=== PATIENT | female | born 1940 | race Caucasian/White ===

== ENCOUNTER 2017-10-18 06:20 | Inpatient (IN) | payer OTHER ==
[2017-10-17 16:07] LABS: BASOPHILS # (AUTO) 0.1 (0.0-0.1); BASOPHILS % 0.7 % (0.0-1.0); EOSINOPHILS # (AUTO) 0.1 (0.0-0.4); EOSINOPHILS % 1.7 % (0.0-6.0); HEMATOCRIT 40.2 % (34.2-44.1); HEMOGLOBIN 13.6 g/dL (12.0-16.0); LYMPHOCYTES # (AUTO) 2.5 (1.0-3.2); LYMPHOCYTES % 33.2 % (18.0-39.1); MEAN CORPUSCULAR HGB CONC 33.8 g/dL (31-35); MEAN CORPUSCULAR VOLUME 88.5 fL (81-99); MONOCYTES # (AUTO) 0.6 (0.2-0.8); MONOCYTES % 8.4 % (4.4-11.3); NEUTROPHILS # (AUTO) 4.2 (2.1-6.9); NEUTROPHILS % 55.6 % (38.7-80.0); PLATELET COUNT 214 x10e3/uL (140-360); RED BLOOD COUNT 4.54 x10e6/uL (3.6-5.1); RED CELL DISTRIBUTION WIDTH 12.7 % (11.7-14.4)
[2017-10-17 16:14] LABS: INR 1.04; PROTHROMBIN TIME 12.8 seconds (11.9-14.5)
[2017-10-17 16:23] LABS: ALBUMIN/GLOBULIN RATIO 1.1 (0.8-2.0); ANION GAP 13.5 mmol/L (8-16); CALCIUM 11.4 mg/dL (8.4-10.2); CREATININE, SERUM 1.2 mg/dL (0.57-1.11); POTASSIUM 4.5 mmol/L (3.5-5.1)
--- NOTE | 2017-10-17 16:58 | Diagnostic Imaging Report ---
PROCEDURE: Frontal and lateral views of the chest. COMPARISON: None. INDICATIONS: PRE-OP FOR HEART CATHETERIZATION. CHEST PAIN FINDINGS: Lines/tubes: Left chest wall dual-lead cardiac device in place with distal leads overlying right atrium and right ventricle. Lungs: The lungs are well inflated. There is no evidence of pneumonia or pulmonary edema. Minimal left basilar subsegmental atelectasis. Pleura: There is no pleural effusion or pneumothorax. Heart and mediastinum: The heart and the mediastinum are normal. Aorta is calcified. Bones: No acute bony abnormality. IMPRESSION: 1. No acute cardiopulmonary disease. Dictated by: Óscar Redding M.D. on 10/17/2017 at 17:01 Electronically approved by: Óscar Redding M.D. on 10/17/2017 at 17:01
[2017-10-18] VITALS (29 sets, daily range): BP systolic 105–163; BP diastolic 51–84
[~2017-10-18] VITALS: Ht 152.4 cm; Wt 72.6 kg
[2017-10-18] MEDS ORDERED: PRAVASTATIN SOD80 MG PO (06:47)
[2017-10-18] MEDS ORDERED: PANTOPRAZOLE SO40 MG PO (06:47)
[2017-10-18] MEDS ORDERED: NITROGLYCERIN0.4 MG SL (06:47)
[2017-10-18] MEDS ORDERED: ASPIRIN81 MG PO (06:47)
[2017-10-18] MEDS ORDERED: LOSARTAN POTASS25 MG PO (06:47)
[2017-10-18] MEDS ORDERED: LEVEMIR100 UNIT/1 SQ ×2 (06:47)
[2017-10-18] MEDS ORDERED: MECLIZINE HCL12.5 MG PO (06:47)
[2017-10-18] MEDS ORDERED: FAMOTIDINE20 MG PO (06:47)
[2017-10-18] MEDS ORDERED: SODIUM CHLORIDE 0.9% 1000ML 0 ML ONE (06:52)
[2017-10-18] MEDS ORDERED: FENTANYL CITRATE/PF 100MCG/2 ML INJ ONE (07:04)
[2017-10-18] MEDS ORDERED: MIDAZOLAM HCL 2 MG/2 ML VIAL ONE (07:04)
[2017-10-18] MEDS ORDERED: SODIUM CHLORIDE 0.9% 1000ML 1,000 ML ONE ×3 (07:05→15:14)
[2017-10-18] MEDS ORDERED: LIDOCAINE HCL 2% LOCAL 20 ML VIAL ONE (07:05)
[2017-10-18] MEDS ORDERED: IOPAMIDOL 370 MG/ML 200 ML INFUS..BTL INJ ONE ×3 (07:05→08:26)
[2017-10-18] MEDS ORDERED: HEPARIN SOD/SOD CHLORIDE 2,000 ML ONE (07:05)
[2017-10-18] MEDS ORDERED: SODIUM CHLORIDE 0.9% 50ML 50 ML ONE (07:52)
[2017-10-18] MEDS ORDERED: LABETALOL HCL 20 ML ONE (07:52)
[2017-10-18] MEDS ORDERED: BIVALIRUDIN 250 MG/VIAL IV ONE (07:52)
[2017-10-18] MEDS ORDERED: ATROPINE SULFATE 0.1 MG/ML 10ML SYR ONE (08:22)
[2017-10-18] MEDS ORDERED: ASPIRIN 325 MG TAB ONE (08:32)
[2017-10-18] MEDS ORDERED: CLOPIDOGREL BISULFATE 75 MG TAB ONE ×2 (08:32)
[2017-10-18] MEDS ORDERED: ONDANSETRON HCL INJ 2 MG/ML VIAL ONE ×2 (08:33→15:13)
[2017-10-18] MEDS ORDERED: ONDANSETRON HCL INJ 2 MG/ML VIAL IV PRN (15:15)
[2017-10-18] MEDS ORDERED: PROMETHAZINE 12.5MG/ NACL 0.9% 12.5 MG/50 ML BAG IV PRN (18:15)
[2017-10-18] MEDS ORDERED: DEXTROSE 50% SYRINGE 50 ML IV PRN ×2 (19:30→21:00)
[2017-10-18] MEDS: INSULIN REGULAR, HUMAN 100 UNIT/1 ML 3ML VIAL SQ SCH (21:00)
[2017-10-19] VITALS (20 sets, daily range): BP systolic 122–159; BP diastolic 46–72
[2017-10-19 06:08] LABS: BASOPHILS % 0.6 % (0.0-1.0); EOSINOPHILS # (AUTO) 0.1 (0.0-0.4); EOSINOPHILS % 2.1 % (0.0-6.0); HEMATOCRIT 34.6 % (34.2-44.1); LYMPHOCYTES # (AUTO) 2.3 (1.0-3.2); LYMPHOCYTES % 34.1 % (18.0-39.1); MEAN CORPUSCULAR HEMOGLOBIN 29.7 pg (28-32); MEAN CORPUSCULAR HGB CONC 31.8 g/dL (31-35); MEAN CORPUSCULAR VOLUME 93.5 fL (81-99); MONOCYTES # (AUTO) 0.6 (0.2-0.8); MONOCYTES % 9.2 % (4.4-11.3); NEUTROPHILS # (AUTO) 3.5 (2.1-6.9); NEUTROPHILS % 53.4 % (38.7-80.0); PLATELET COUNT 168 x10e3/uL (140-360); RED CELL DISTRIBUTION WIDTH 12.8 % (11.7-14.4)
[2017-10-19 06:28] LABS: ANION GAP 11.9 mmol/L (8-16); CALCIUM 10.1 mg/dL (8.4-10.2); CREATININE, SERUM 0.94 mg/dL (0.57-1.11); POTASSIUM 4.9 mmol/L (3.5-5.1)
[2017-10-19] MEDS: INSULIN REGULAR, HUMAN 100 UNIT/1 ML 3ML VIAL SQ SCH (07:30)
[2017-10-19] MEDS ORDERED: ASPIRIN 325 MG TAB PO ONE (10:00)
[2017-10-19] MEDS ORDERED: METOPROLOL TARTRATE 25 MG TAB PO ONE (10:00)
[2017-10-19] MEDS ORDERED: CLOPIDOGREL BISULFATE 75 MG TAB PO ONE (10:00)
[2017-10-19] MEDS ORDERED: SODIUM CHLORIDE 0.9% 1000ML 1,000 ML IV SCH (10:15)
[2017-10-19] MEDS ORDERED: CLOPIDOGREL BISULFATE 75 MG TAB PO SCH (10:30)
[2017-10-19] MEDS ORDERED: ASPIRIN 325 MG TAB PO SCH (10:30)
[2017-10-19] MEDS ORDERED: AMLODIPINE BESYLATE 5 MG TAB PO SCH (10:30)
--- NOTE | 2017-10-19 11:04 | Operative Report ---
DATE OF PROCEDURE: October 18, 2017 PROCEDURES PERFORMED 1. Left heart catheterization. 2. Selective coronary angiogram. 3. Left ventriculogram. 4. Stent placement in the right coronary artery. INDICATIONS: Angina. DESCRIPTION OF PROCEDURE: After informed consent, the patient was brought to the cardiac catheterization laboratory and placed on the table. Both groins were painted and draped in a sterile fashion. Lidocaine injected into the right groin for local anesthesia. Right femoral artery was accessed by Seldinger technique, and a 5-Ugandan sheath was placed in the right femoral artery. Left main artery was cannulated using a JL4, 5-Ugandan catheter. Coronary angiogram was performed and images obtained in multiple views. The right coronary artery was cannulated using a 3DRC, 5-Ugandan catheter. Coronary angiogram was performed. Images were obtained in multiple views. LV-gram was performed using a pigtail catheter. After reviewing the images, it was decided to intervene on the 99% distal right coronary artery lesion. The 5-Ugandan sheath was exchanged for a 6-Ugandan sheath over a guidewire. Attempts were made to cannulate the right coronary artery using an EL 0.75 guide. However, it would not access the ostium. A JR4, 6-Ugandan guide was used to cannulate the right coronary artery. A Prowater wire was advanced through the sheath and placed in the distal right coronary artery. The lesion was dilated at 8 atmospheres for about 20 seconds using a 2.5 x 12 mm Emerge balloon. Subsequently, a 2.75 x 16 mm Synergy drug-eluting stent was deployed across the lesion at 11 atmospheres for 20 seconds. Patient was given aspirin, Plavix and Angiomax during the procedure. Patient tolerated the procedure without any complications. REPORT LEFT MAIN: Normal caliber and no luminal irregularities. LEFT ANTERIOR DESCENDING: Normal caliber with luminal irregularities. The 1st diagonal branch has about 30% proximal lesion. LEFT CIRCUMFLEX: Normal caliber and luminal irregularities. RIGHT CORONARY ARTERY: Normal caliber and 99% distal lesion. LV-GRAM: Normal LV function. Overall ejection fraction 55%. HEMODYNAMICS: Aortic pressure is 205/77. LV pressure is 204/9. LVEDP 17. Balloon used was a 2.5 x 12 mm Emerge. Stent used was 2.75 x 16 mm Synergy drug-eluting stent, which was deployed across the lesion in the distal right coronary artery. There was zero percent residual stenosis. ISABELLA-III flow noted. Job#: [id number] RICHARD
[2017-10-19] MEDS ORDERED: METOPROLOL TARTRATE 25 MG TAB PO SCH (17:00)
[2017-10-19] MEDS ORDERED: PRAVASTATIN 20 MG TAB PO SCH (21:00)
[2017-10-20] MEDS ORDERED: CLOPIDOGREL BISULFATE 75 MG TAB PO SCH (09:00)
== END 2017-10-19 12:48 | disposition home or self-care (01) | DRG 247 ==
LOC: CATH LAB 06:20 → CATH LAB V 08:48 → ICU 15:07
PROVIDERS: ADMIT Internal Medicine; ATTEND Internal Medicine
PROC: 027034Z Dilation of Coronary Artery, One Artery with Drug-eluting Intraluminal Device, Percutaneous Approach (ICD-10-PCS; principal; 2017-10-19)
PROC: 4A023N7 Measurement of Cardiac Sampling and Pressure, Left Heart, Percutaneous Approach (ICD-10-PCS; 2017-10-19)
PROC: B2111ZZ Fluoroscopy of Multiple Coronary Arteries using Low Osmolar Contrast (ICD-10-PCS; 2017-10-19)
PROC: B2151ZZ Fluoroscopy of Left Heart using Low Osmolar Contrast (ICD-10-PCS; 2017-10-19)
DX: I25.119 Atherosclerotic heart disease of native coronary artery with unspecified angina pectoris (principal); R00.2 Palpitations; I10 Essential (primary) hypertension; Z95.0 Presence of cardiac pacemaker; R01.1 Cardiac murmur, unspecified; I49.5 Sick sinus syndrome; Z95.5 Presence of coronary angioplasty implant and graft; R07.2 Precordial pain
CPT/HCPCS: 36415; 71046; 80048; 80053; 82948; 85025; 85610; 93005; 93458; 96372; C9600; J0583; J2001; J2250; J2405; J2550; J7030; Q9967

== ENCOUNTER → 2019-03-14 | Day surgery (SDC) | payer OTHER ==
[2019-03-06 10:58] LABS: BASOPHILS % 0.7 % (0.0-1.0); EOSINOPHILS # (AUTO) 0.1 (0.0-0.4); EOSINOPHILS % 2.6 % (0.0-6.0); HEMATOCRIT 23.6 % (34.2-44.1); LYMPHOCYTES # (AUTO) 1.3 (1.0-3.2); LYMPHOCYTES % 31.2 % (18.0-39.1); MEAN CORPUSCULAR HEMOGLOBIN 22.4 pg (28-32); MEAN CORPUSCULAR HGB CONC 28.8 g/dL (31-35); MEAN CORPUSCULAR VOLUME 77.9 fL (81-99); MONOCYTES # (AUTO) 0.5 (0.2-0.8); MONOCYTES % 10.5 % (4.4-11.3); NEUTROPHILS # (AUTO) 2.3 (2.1-6.9); NEUTROPHILS % 54.3 % (38.7-80.0); PLATELET COUNT 215 x10e3/uL (140-360); RED BLOOD COUNT 3.03 x10e6/uL (3.6-5.1); RED CELL DISTRIBUTION WIDTH 15.3 % (11.7-14.4)
[2019-03-06 11:30] LABS: HEMOGLOBIN 6.8 g/dL (12.0-16.0)
[~2019-03-14] MED LIST: ASPIRIN81 MG PO; FAMOTIDINE20 MG PO; GABAPENTIN100 MG PO; INSULIN REGULAR, HUMAN 100 UNIT/1 ML 3ML VIAL ONE; LEVEMIR100 UNIT/1 SQ; LIDOCAINE HCL 2% LOCAL INJ 5 ML SDV VIAL INJ ONE; LOSARTAN POTASS25 MG PO; MECLIZINE HCL12.5 MG PO; METOPROLOL TART25 MG PO; NITROGLYCERIN0.4 MG SL; NOVOLOG100 UNIT/1 SQ; ONDANSETRON HCL INJ 2MG/ML 2ML 2 MG/ML VIAL ONE; PANTOPRAZOLE SO40 MG PO; PLAVIX75 MG PO; PRAVASTATIN SOD80 MG PO; PROPOFOL IV EMULSION 10 MG/ML 20 ML VIAL ONE
[2019-03-14 09:12] LABS: HEMATOCRIT 38.1 % (34.2-44.1); HEMOGLOBIN 11.4 g/dL (12.0-16.0)
[2019-03-14 11:15] VITALS: BP 156/67
== END | disposition home or self-care (01) ==
LOC: OR 08:25
PROVIDERS: ATTEND Internal Medicine Gastroenterology
DX: R10.13 Epigastric pain (principal); K25.3 Acute gastric ulcer without hemorrhage or perforation; K29.50 Unspecified chronic gastritis without bleeding; R13.19 Other dysphagia; R07.89 Other chest pain; K59.00 Constipation, unspecified; K44.9 Diaphragmatic hernia without obstruction or gangrene; I10 Essential (primary) hypertension; E11.9 Type 2 diabetes mellitus without complications; Z71.3 Dietary counseling and surveillance; E66.9 Obesity, unspecified; Z68.32 Body mass index [BMI] 32.0-32.9, adult; Z88.5 Allergy status to narcotic agent; Z88.8 Allergy status to other drugs, medicaments and biological substances; Z91.040 Latex allergy status; G47.33 Obstructive sleep apnea (adult) (pediatric); J44.9 Chronic obstructive pulmonary disease, unspecified; Z95.0 Presence of cardiac pacemaker; I25.10 Atherosclerotic heart disease of native coronary artery without angina pectoris; Z95.5 Presence of coronary angioplasty implant and graft; I73.9 Peripheral vascular disease, unspecified; Z79.82 Long term (current) use of aspirin; Z79.4 Long term (current) use of insulin; K22.8 Other specified diseases of esophagus
CPT/HCPCS: 36415 ×2; 43239; 43450; 82948; 85014; 85018; 85025; 93005; J2001; J2405; J2704; J1817

== ENCOUNTER 2021-03-09 15:10 | Inpatient (IN) | payer OTHER ==
[~2021-03-09] VITALS: Ht 152.4 cm; Wt 73.5 kg
[~2021-03-09 15:10] MED LIST changes: -INSULIN REGULAR, HUMAN 100 UNIT/1 ML 3ML VIAL ONE; -LIDOCAINE HCL 2% LOCAL INJ 5 ML SDV VIAL INJ ONE; -ONDANSETRON HCL INJ 2MG/ML 2ML 2 MG/ML VIAL ONE; -PROPOFOL IV EMULSION 10 MG/ML 20 ML VIAL ONE
[2021-03-09 16:14] LABS: BASOPHILS % 0.7 % (0.0-1.0); EOSINOPHILS # (AUTO) 0.1 (0.0-0.4); HEMOGLOBIN 12.2 g/dL (12.0-16.0); LYMPHOCYTES # (AUTO) 1.4 (1.0-3.2); MEAN CORPUSCULAR HEMOGLOBIN 29.2 pg (28-32); MEAN CORPUSCULAR HGB CONC 32.1 g/dL (31-35); MEAN CORPUSCULAR VOLUME 90.9 fL (81-99); MONOCYTES # (AUTO) 0.4 (0.2-0.8); MONOCYTES % 8.7 % (4.4-11.3); NEUTROPHILS # (AUTO) 2.4 (2.1-6.9); NEUTROPHILS % 55.1 % (38.7-80.0); PLATELET COUNT 190 x10e3/uL (140-360); RED BLOOD COUNT 4.18 x10e6/uL (3.6-5.1); RED CELL DISTRIBUTION WIDTH 13.5 % (11.7-14.4)
[2021-03-09] MEDS ORDERED: ASPIRIN 81 MG CHEW TAB PO ONE ×2 (16:30)
[2021-03-09 16:40] LABS: ALBUMIN/GLOBULIN RATIO 1.1 (0.8-2.0); ANION GAP 12.9 mmol/L (8-16); CALCIUM 9.8 mg/dL (8.4-10.2); CREATININE, SERUM 0.9 mg/dL (0.57-1.11); POTASSIUM 3.9 mmol/L (3.5-5.1)
[2021-03-09 17:51] VITALS: BP 179/65
[2021-03-09] MEDS: ENOXAPARIN INJ 80 MG/0.8 ML SYR SC SCH (18:27)
[2021-03-09] MEDS: SODIUM CHLORIDE 0.9% 1000ML 1,000 ML IV SCH (18:27)
[2021-03-09 20:00] VITALS: BP 130/50
[2021-03-09 20:40] VITALS: BP 130/50
[2021-03-09 23:39] VITALS: BP 130/50
[2021-03-10] VITALS (14 sets, daily range): BP systolic 133–157; BP diastolic 49–113
[2021-03-10 02:15] LABS: CREATINE KINASE MB 12.1 ng/mL (0-5.0)
[2021-03-10 06:17] LABS: BASOPHILS % 0.9 % (0.0-1.0); EOSINOPHILS # (AUTO) 0.1 (0.0-0.4); EOSINOPHILS % 2.4 % (0.0-6.0); HEMOGLOBIN 11.2 g/dL (12.0-16.0); LYMPHOCYTES # (AUTO) 1.3 (1.0-3.2); LYMPHOCYTES % 29.3 % (18.0-39.1); MEAN CORPUSCULAR HEMOGLOBIN 28.7 pg (28-32); MEAN CORPUSCULAR VOLUME 89.7 fL (81-99); MONOCYTES # (AUTO) 0.4 (0.2-0.8); NEUTROPHILS # (AUTO) 2.6 (2.1-6.9); PLATELET COUNT 156 x10e3/uL (140-360); RED CELL DISTRIBUTION WIDTH 13.4 % (11.7-14.4)
[2021-03-10 06:30] LABS: ANION GAP 10.6 mmol/L (8-16); CREATININE, SERUM 0.8 mg/dL (0.57-1.11); POTASSIUM 4.6 mmol/L (3.5-5.1)
[2021-03-10] MEDS: ENOXAPARIN INJ 80 MG/0.8 ML SYR SC SCH ×3 (06:30→21:27)
[2021-03-10 06:31] LABS: CALCIUM 9.7 mg/dL (8.4-10.2)
[2021-03-10 06:41] LABS: CREATINE KINASE MB 3.8 ng/mL (0-5.0)
[2021-03-10] MEDS: SODIUM CHLORIDE 0.9% 1000ML 1,000 ML IV SCH ×2 (07:00→15:59)
[2021-03-10] MEDS ORDERED: CLOPIDOGREL BISULFATE 300 MG TAB-DO NOT STOCK PO ONE (07:30)
[2021-03-10] MEDS ORDERED: HEPARIN SOD (PORCINE) 1000 UNIT/ML 30ML ONE (07:55)
[2021-03-10] MEDS ORDERED: LIDOCAINE HCL 2% LOCAL 20 ML VIAL ONE (07:55)
[2021-03-10] MEDS ORDERED: HEPARIN SOD/SOD CHLORIDE 2,000 ML ONE (07:55)
[2021-03-10] MEDS ORDERED: SODIUM CHLORIDE 0.9% 1000ML 1,000 ML ONE (07:56)
[2021-03-10] MEDS ORDERED: IOPAMIDOL 370 MG/ML 200 ML INFUS..BTL INJ ONE (07:56)
[2021-03-10] MEDS ORDERED: NITROGLYCERIN/D5W 200 MCG/ML 250 ML ONE (07:56)
[2021-03-10] MEDS ORDERED: CLOPIDOGREL BISULFATE 75 MG TAB PO ONE (08:00)
[2021-03-10] MEDS ORDERED: ASPIRIN 325 MG TAB PO ONE (08:00)
[2021-03-10] MEDS: ONDANSETRON HCL INJ 2MG/ML 2ML 2 MG/ML VIAL IV PRN ×2 (08:12→18:32)
[2021-03-10] MEDS ORDERED: MIDAZOLAM HCL 2 MG/2 ML VIAL ONE (08:22)
[2021-03-10] MEDS ORDERED: FENTANYL CITRATE/PF 100MCG/2 ML INJ ONE (08:22)
[2021-03-10] MEDS ORDERED: ASPIRIN 325 MG TAB ONE (09:23)
[2021-03-10] MEDS ORDERED: VERAPAMIL HCL 2.5 MG/ML 2 ML VIAL ONE (09:28)
[2021-03-10] MEDS ORDERED: FUROSEMIDE40 MG PO (09:46)
[2021-03-10] MEDS ORDERED: ULTRAM50 MG PO (09:46)
[2021-03-10] MEDS ORDERED: XARELTO10 MG PO (09:46)
[2021-03-10] MEDS ORDERED: DONEPEZIL HCL5 MG PO (09:46)
[2021-03-10] MEDS ORDERED: PLAVIX75 MG PO (09:46)
[2021-03-10] MEDS ORDERED: QUETIAPINE FUMA25 MG PO (09:46)
[2021-03-10] MEDS ORDERED: TICAGRELOR 90 MG TABLET ONE ×2 (10:02→10:53)
[2021-03-10] MEDS ORDERED: ONDANSETRON HCL INJ 2MG/ML 2ML 2 MG/ML VIAL ONE (10:32)
[2021-03-10 16:54] LABS: CREATINE KINASE MB 4.1 ng/mL (0-5.0)
[2021-03-10] MEDS: TICAGRELOR 90 MG TABLET PO SCH (18:16)
[2021-03-10] MEDS ORDERED: TICAGRELOR 90 MG TABLET PO NR (19:30)
[2021-03-10] MEDS ORDERED: PROMETHAZINE 25MG/ NS 50ML (IV) IV NR (19:30)
[2021-03-10] MEDS ORDERED: PROMETHAZINE 25MG/ NS 50ML (IV) IV ONE (19:30)
[2021-03-10] MEDS ORDERED: ATORVASTATIN 40 MG TAB PO SCH (21:00)
[2021-03-11] VITALS: BP 152/59
[2021-03-11] MEDS: SODIUM CHLORIDE 0.9% 1000ML 1,000 ML IV SCH (01:32)
[2021-03-11 04:00] VITALS: BP 110/61
[2021-03-11 08:03] VITALS: BP 111/80
[2021-03-11 08:10] VITALS: BP 111/80
[2021-03-11] MEDS ORDERED: ONDANSETRON HCL 4 MG ORAL DISINTEGRATING TAB PO PRN (08:45)
[2021-03-11] MEDS ORDERED: ASPIRIN 81 MG CHEW TAB PO SCH (09:00)
[2021-03-11] MEDS ORDERED: ASPIRIN 81 MG ENTERIC COATED PO SCH (09:00)
[2021-03-11] MEDS ORDERED: CARVEDILOL 12.5 MG TAB PO SCH (09:00)
[2021-03-11] MEDS ORDERED: CLOPIDOGREL BISULFATE 75 MG TAB PO SCH (09:00)
[2021-03-11] MEDS ORDERED: ASPIRIN 325 MG TAB PO SCH (09:00)
[2021-03-11] MEDS: TICAGRELOR 90 MG TABLET PO SCH (09:01)
[2021-03-11] MEDS: ENOXAPARIN INJ 80 MG/0.8 ML SYR SC SCH (09:02)
[2021-03-11 09:08] LABS: CHOL/HDL RATIO 6.1 (3.0-3.6)
== END 2021-03-11 10:34 | disposition home or self-care (01) | DRG 246 ==
LOC: ER 15:14 → ERHOLD 16:38 → MED/SURG3 17:43
PROVIDERS: ADMIT Internal Medicine; ATTEND Internal Medicine
PROC: 027035Z Dilation of Coronary Artery, One Artery with Two Drug-eluting Intraluminal Devices, Percutaneous Approach (ICD-10-PCS; principal; 2021-03-10)
PROC: 4A023N7 Measurement of Cardiac Sampling and Pressure, Left Heart, Percutaneous Approach (ICD-10-PCS; 2021-03-10)
PROC: B2151ZZ Fluoroscopy of Left Heart using Low Osmolar Contrast (ICD-10-PCS; 2021-03-10)
PROC: B2111ZZ Fluoroscopy of Multiple Coronary Arteries using Low Osmolar Contrast (ICD-10-PCS; 2021-03-10)
DX: I21.4 Non-ST elevation (NSTEMI) myocardial infarction (principal); I50.33 Acute on chronic diastolic (congestive) heart failure; I25.110 Atherosclerotic heart disease of native coronary artery with unstable angina pectoris; J44.9 Chronic obstructive pulmonary disease, unspecified; E11.9 Type 2 diabetes mellitus without complications; Z88.1 Allergy status to other antibiotic agents; Z88.5 Allergy status to narcotic agent; Z88.8 Allergy status to other drugs, medicaments and biological substances; E78.5 Hyperlipidemia, unspecified; G47.33 Obstructive sleep apnea (adult) (pediatric); I25.10 Atherosclerotic heart disease of native coronary artery without angina pectoris; Z95.5 Presence of coronary angioplasty implant and graft; Z95.0 Presence of cardiac pacemaker; I11.0 Hypertensive heart disease with heart failure; Z79.4 Long term (current) use of insulin; Z20.822 Contact with and (suspected) exposure to COVID-19
CPT/HCPCS: 36415; 71045; 80048; 80053; 80061; 82550; 82553; 82948; 83690; 84484; 85025; 92928; 92929; 93005; 93306; 93458; 94799; 99152; 99153; 99284; C1725; C1760; C1769; C1874; C1887; C1894; C9600; C9601; J1644; J1650; J2001; J2250; J2405; J2550; J3010; J7030; Q9967; U0002

== ENCOUNTER → 2021-11-19 | Outpatient (CLI) | payer OTHER ==
[~2021-11-19] MED LIST changes: +DONEPEZIL HCL5 MG PO; +FUROSEMIDE40 MG PO; +IOPAMIDOL 200 MG/ML 20 ML VIAL IT ONE; +IOPAMIDOL 300 MG/ML 15ML VIAL IT ONE; +LIDOCAINE HCL 1% LOCAL INJ 20 ML VIAL ONE; +QUETIAPINE FUMA25 MG PO; +ULTRAM50 MG PO; +XARELTO10 MG PO
[2021-11-19 14:18] LABS: HEMOGLOBIN 11.9 g/dL (12.0-16.0)
[2021-11-19 14:25] LABS: INR 0.95; PROTHROMBIN TIME 13.5 seconds (11.9-14.5)
[2021-11-19 14:26] LABS: PARTIAL THROMBOPLASTIN TIME 32.7 seconds (23.8-35.5)
== END ==
LOC: DX 13:01
PROVIDERS: ATTEND Family Medicine
DX: M48.061 Spinal stenosis, lumbar region without neurogenic claudication (principal); M54.51 Vertebrogenic low back pain
CPT/HCPCS: 36415; 62304; 72132; 77003; 85014; 85049; 85610; 85730; J2001; Q9967

== ENCOUNTER 2023-02-03 14:04 | Inpatient (IN) | payer OTHER ==
[~2023-02-03] VITALS: Ht 152.4 cm; Wt 71.7 kg
[~2023-02-03 14:04] MED LIST changes: -IOPAMIDOL 200 MG/ML 20 ML VIAL IT ONE; -IOPAMIDOL 300 MG/ML 15ML VIAL IT ONE; -LIDOCAINE HCL 1% LOCAL INJ 20 ML VIAL ONE
[2023-02-03] MEDS ORDERED: ASPIRIN 81 MG CHEW TAB PO ONE ×2 (14:45→16:00)
[2023-02-03] MEDS ORDERED: ENOXAPARIN INJ 80 MG/0.8 ML SYR SC ONE (14:45)
[2023-02-03 14:52] LABS: BASOPHILS % 0.9 % (0.0-1.0); EOSINOPHILS # (AUTO) 0.1 (0.0-0.4); EOSINOPHILS % 2.2 % (0.0-6.0); HEMATOCRIT 29.1 % (34.2-44.1); LYMPHOCYTES % 21.6 % (18.0-39.1); MEAN CORPUSCULAR HGB CONC 30.9 g/dL (31-35); MEAN CORPUSCULAR VOLUME 80.8 fL (81-99); MONOCYTES # (AUTO) 0.5 (0.2-0.8); MONOCYTES % 10.3 % (4.4-11.3); NEUTROPHILS # (AUTO) 2.8 (2.1-6.9); NEUTROPHILS % 63.9 % (38.7-80.0); PLATELET COUNT 217 x10e3/uL (140-360); RED CELL DISTRIBUTION WIDTH 14.9 % (11.7-14.4); WHITE BLOOD COUNT 4.45 x10e3/uL (4.8-10.8)
[2023-02-03 15:10] LABS: ANION GAP 14.1 mmol/L (8-16); CALCIUM 10.4 mg/dL (8.4-10.2); CREATININE, SERUM 0.85 mg/dL (0.57-1.11); POTASSIUM 4.1 mmol/L (3.5-5.1)
[2023-02-03] MEDS ORDERED: SODIUM CHLORIDE FLUSH 10 ML SYR INJ PRN (16:00)
[2023-02-03 17:47] LABS: CLARITY,URINE SL CLOUDY (CLEAR); COLOR,URINE YELLOW (YELLOW); KETONES,URINE NEGATIVE (NEGATIVE); LEUKOCYTE ESTERASE ,URINE NEGATIVE (NEGATIVE); NITRITE,URINE NEGATIVE (NEGATIVE); PROTEIN,URINE DIPSTICK >=300 (NEGATIVE); URINE UROBILINOGEN 0.2 mg/dL (0.2 - 1)
[2023-02-03 18:00] LABS: BACTERIA,URINE FEW /HPF; EPITHELIAL CELLS,URINE FEW /LPF; WBC,URINE (MAN) 0-5 /HPF (0-5)
[2023-02-03 20:15] VITALS: PULSE 87; RESP 18; O2SAT 100
[2023-02-03 21:00] VITALS: BP 151/83; PULSE 87; RESP 18; TEMP 97.7; O2SAT 100
[2023-02-03] MEDS ORDERED: ACETAMINOPHEN 325 MG TAB PO PRN (21:00)
[2023-02-03] MEDS ORDERED: ONDANSETRON HCL INJ 2MG/ML 2ML 2 MG/ML VIAL IV PRN (21:00)
[2023-02-03] MEDS ORDERED: FUROSEMIDE INJ 10 MG/ML 4 ML VIAL IV SCH (21:00)
[2023-02-03] MEDS ORDERED: MECLIZINE HCL 12.5 MG TAB PO PRN (21:00)
[2023-02-03 21:43] VITALS: BP 162/55; PULSE 76; RESP 18; TEMP 98.3; O2SAT 100
[2023-02-03 21:57] VITALS: BP 191/58; PULSE 76; RESP 20; TEMP 97.9; O2SAT 99
[2023-02-03] MEDS: HYDRALAZINE HCL 20 MG/ML VIAL IV PRN (22:10)
[2023-02-03] MEDS: CLOPIDOGREL BISULFATE 75 MG TAB PO SCH (22:10)
[2023-02-03] MEDS: DONEPEZIL HCL 5 MG TAB PO SCH (22:11)
[2023-02-03] MEDS: TRAMADOL HCL 50 MG TAB PO SCH (22:11)
[2023-02-03] MEDS: QUETIAPINE FUMARATE 25 MG TAB PO SCH (22:11)
[2023-02-03] MEDS ORDERED: IOPAMIDOL 370 MG/ML 100 ML INFUS..BTL INJ ONE (22:50)
[2023-02-03 23:00] VITALS: BP 123/55; PULSE 94; RESP 18; TEMP 97.8; O2SAT 97
[2023-02-03 23:48] VITALS: BP 191/58; PULSE 76; RESP 20; TEMP 97.9; O2SAT 99
[2023-02-04] VITALS (7 sets, daily range): BP systolic 90–154; BP diastolic 40–70; PULSE 71–89; RESP 17–20; TEMP 97.3–98.9; O2SAT 94–98
[2023-02-04 05:54] LABS: BASOPHILS % 0.7 % (0.0-1.0); EOSINOPHILS # (AUTO) 0.1 (0.0-0.4); EOSINOPHILS % 1.9 % (0.0-6.0); HEMATOCRIT 26.7 % (34.2-44.1); HEMOGLOBIN 8.3 g/dL (12.0-16.0); LYMPHOCYTES % 22.4 % (18.0-39.1); MEAN CORPUSCULAR HEMOGLOBIN 25.2 pg (28-32); MEAN CORPUSCULAR HGB CONC 31.1 g/dL (31-35); MEAN CORPUSCULAR VOLUME 81.2 fL (81-99); MONOCYTES # (AUTO) 0.5 (0.2-0.8); MONOCYTES % 11.8 % (4.4-11.3); NEUTROPHILS # (AUTO) 2.7 (2.1-6.9); NEUTROPHILS % 62.5 % (38.7-80.0); PLATELET COUNT 191 x10e3/uL (140-360); RED BLOOD COUNT 3.29 x10e6/uL (3.6-5.1); RED CELL DISTRIBUTION WIDTH 15.1 % (11.7-14.4); WHITE BLOOD COUNT 4.24 x10e3/uL (4.8-10.8)
[2023-02-04 06:25] LABS: ANION GAP 14.2 mmol/L (8-16); CREATININE, SERUM 1.01 mg/dL (0.57-1.11); POTASSIUM 4.2 mmol/L (3.5-5.1)
[2023-02-04 06:27] LABS: CHOL/HDL RATIO 3.7 (3.0-3.6)
[2023-02-04 06:44] LABS: MAGNESIUM 1.8 MG/DL (1.3-2.1)
[2023-02-04 07:05] LABS: THYROID STIMULATING HORMONE 1.06 uIU/mL (0.350-4.940)
[2023-02-04] MEDS: PANTOPRAZOLE SOD 40 MG TABEC PO SCH ×2 (09:46→17:06)
[2023-02-04] MEDS: GABAPENTIN 100 MG CAP PO SCH ×2 (09:46→17:06)
[2023-02-04] MEDS: CLOPIDOGREL BISULFATE 75 MG TAB PO SCH (09:47)
[2023-02-04] MEDS: LOSARTAN POTASSIUM 25 MG TAB PO SCH (09:50)
[2023-02-04] MEDS: FUROSEMIDE INJ 10 MG/ML 4 ML VIAL IV SCH (12:24)
[2023-02-04] MEDS ORDERED: LEVEMIR100 UNIT/1 SC (13:32)
[2023-02-04] MEDS: CEFTRIAXONE 2 GM in SODIUM CHLORIDE 0.9% 100 ML IV SCH (15:39)
[2023-02-04] MEDS: DEXAMETHASONE SOD PHOS 10 MG/1 ML VIAL IV SCH (15:39)
[2023-02-04] MEDS ORDERED: REMDESIVIR 100MG 200 MG in SODIUM CHLORIDE 0.9% 100 ML IV ONE ×2 (16:00→19:30)
[2023-02-04] MEDS ORDERED: RIVAROXABAN 10 MG TABLET PO SCH (17:00)
[2023-02-04] MEDS: ENOXAPARIN 30 MG/0.3 ML SYR SC SCH (17:07)
[2023-02-04] MEDS ORDERED: DEXTROSE 50% SYRINGE 50 ML IV PRN (19:15)
[2023-02-04] MEDS: QUETIAPINE FUMARATE 25 MG TAB PO SCH (20:51)
[2023-02-04] MEDS: DONEPEZIL HCL 5 MG TAB PO SCH (20:51)
[2023-02-04] MEDS: TRAMADOL HCL 50 MG TAB PO SCH (20:52)
[2023-02-04] MEDS: INSULIN LISPRO 100 UNIT/1 ML 3ML VIAL SQ SCH (21:00)
[2023-02-05] VITALS (8 sets, daily range): BP systolic 101–156; BP diastolic 48–90; PULSE 70–77; RESP 13–20; TEMP 97.5–98.4; O2SAT 97–100
[2023-02-05 06:48] LABS: ALBUMIN 3.6 g/dL (3.5-5.0); ALBUMIN/GLOBULIN RATIO 1.1 (0.8-2.0); ANION GAP 11.8 mmol/L (8-16); CREATININE, SERUM 1.11 mg/dL (0.57-1.11); POTASSIUM 4.8 mmol/L (3.5-5.1)
[2023-02-05] MEDS: INSULIN LISPRO 100 UNIT/1 ML 3ML VIAL SQ SCH ×4 (08:42→20:51)
[2023-02-05] MEDS: ENOXAPARIN 30 MG/0.3 ML SYR SC SCH ×2 (08:43→16:26)
[2023-02-05] MEDS: DEXAMETHASONE SOD PHOS 10 MG/1 ML VIAL IV SCH (08:43)
[2023-02-05] MEDS: FUROSEMIDE INJ 10 MG/ML 4 ML VIAL IV SCH (08:43)
[2023-02-05] MEDS: LOSARTAN POTASSIUM 25 MG TAB PO SCH (08:44)
[2023-02-05] MEDS: GABAPENTIN 100 MG CAP PO SCH ×2 (08:44→16:26)
[2023-02-05] MEDS: CLOPIDOGREL BISULFATE 75 MG TAB PO SCH (08:45)
[2023-02-05] MEDS: PANTOPRAZOLE SOD 40 MG TABEC PO SCH ×2 (08:45→16:26)
[2023-02-05] MEDS: CEFTRIAXONE 2 GM in SODIUM CHLORIDE 0.9% 100 ML IV SCH (15:02)
[2023-02-05] MEDS: REMDESIVIR 100MG 100 MG in SODIUM CHLORIDE 0.9% 100 ML IV SCH (15:02)
[2023-02-05] MEDS: DONEPEZIL HCL 5 MG TAB PO SCH (20:52)
[2023-02-05] MEDS: FAMOTIDINE 20 MG TAB PO SCH (20:52)
[2023-02-05] MEDS: INSULIN GLARGINE 100 UNITS/ML VIAL SQ SCH (20:52)
[2023-02-05] MEDS: TRAMADOL HCL 50 MG TAB PO SCH (20:52)
[2023-02-05] MEDS: QUETIAPINE FUMARATE 25 MG TAB PO SCH (20:53)
[2023-02-06 00:21] VITALS: BP 155/51; PULSE 88; RESP 19; TEMP 98.3; O2SAT 95
[2023-02-06 04:41] VITALS: BP 121/54; PULSE 88; RESP 17; TEMP 98.5; O2SAT 98
[2023-02-06 07:02] LABS: ALBUMIN 3.5 g/dL (3.5-5.0); ALBUMIN/GLOBULIN RATIO 1.1 (0.8-2.0); ANION GAP 12.5 mmol/L (8-16); CALCIUM 10.2 mg/dL (8.4-10.2); CREATININE, SERUM 1.31 mg/dL (0.57-1.11); POTASSIUM 4.5 mmol/L (3.5-5.1)
[2023-02-06 08:02] VITALS: BP 114/46; PULSE 66; RESP 17; TEMP 97.5; O2SAT 98
[2023-02-06 08:27] VITALS: BP 114/46; PULSE 66; RESP 17; TEMP 97.5; O2SAT 98
[2023-02-06] MEDS: LOSARTAN POTASSIUM 25 MG TAB PO SCH (08:37)
[2023-02-06] MEDS: DEXAMETHASONE SOD PHOS 10 MG/1 ML VIAL IV SCH (08:38)
[2023-02-06] MEDS: CLOPIDOGREL BISULFATE 75 MG TAB PO SCH (08:38)
[2023-02-06] MEDS: GABAPENTIN 100 MG CAP PO SCH ×2 (08:38→16:52)
[2023-02-06] MEDS: ENOXAPARIN 30 MG/0.3 ML SYR SC SCH ×2 (08:38→16:52)
[2023-02-06] MEDS: PANTOPRAZOLE SOD 40 MG TABEC PO SCH ×2 (08:38→16:52)
[2023-02-06] MEDS: FUROSEMIDE INJ 10 MG/ML 4 ML VIAL IV SCH (08:38)
[2023-02-06] MEDS: INSULIN LISPRO 100 UNIT/1 ML 3ML VIAL SQ SCH ×4 (08:55→21:24)
[2023-02-06 12:45] VITALS: BP 126/42; PULSE 73; RESP 18; TEMP 97.5; O2SAT 99
[2023-02-06] MEDS: CEFTRIAXONE 2 GM in SODIUM CHLORIDE 0.9% 100 ML IV SCH (16:30)
[2023-02-06] MEDS: REMDESIVIR 100MG 100 MG in SODIUM CHLORIDE 0.9% 100 ML IV SCH (16:31)
[2023-02-06 20:00] VITALS: BP 133/52; PULSE 69; RESP 18; TEMP 98.1; O2SAT 100
[2023-02-06] MEDS: FAMOTIDINE 20 MG TAB PO SCH (20:54)
[2023-02-06] MEDS: DONEPEZIL HCL 5 MG TAB PO SCH (20:55)
[2023-02-06] MEDS: QUETIAPINE FUMARATE 25 MG TAB PO SCH (20:55)
[2023-02-06] MEDS: TRAMADOL HCL 50 MG TAB PO SCH (20:57)
[2023-02-06] MEDS: INSULIN GLARGINE 100 UNITS/ML VIAL SQ SCH (21:24)
[2023-02-07] VITALS (16 sets, daily range): BP systolic 115–187; BP diastolic 48–72; PULSE 60–73; RESP 14–20; TEMP 97.1–98.1; O2SAT 90–100
[2023-02-07 06:55] LABS: ALBUMIN 3.5 g/dL (3.5-5.0); ALBUMIN/GLOBULIN RATIO 1.1 (0.8-2.0); ANION GAP 14.6 mmol/L (8-16); CALCIUM 10.2 mg/dL (8.4-10.2); CREATININE, SERUM 1.24 mg/dL (0.57-1.11); POTASSIUM 4.6 mmol/L (3.5-5.1)
[2023-02-07] MEDS: INSULIN LISPRO 100 UNIT/1 ML 3ML VIAL SQ SCH ×4 (07:30→22:57)
[2023-02-07] MEDS ORDERED: HEPARIN SOD (PORCINE) 1000 UNIT/ML 30ML ONE (08:30)
[2023-02-07] MEDS ORDERED: HEPARIN SOD/SOD CHLORIDE 2,000 ML ONE (08:31)
[2023-02-07] MEDS ORDERED: IOPAMIDOL 370 MG/ML 100 ML INFUS..BTL INJ ONE ×2 (08:31→11:40)
[2023-02-07] MEDS ORDERED: LIDOCAINE HCL 2% LOCAL 20 ML VIAL ONE (08:31)
[2023-02-07] MEDS ORDERED: SODIUM CHLORIDE 0.9% 1000ML 1,000 ML ONE (08:31)
[2023-02-07] MEDS ORDERED: NITROGLYCERIN/D5W 200 MCG/ML 250 ML ONE (08:31)
[2023-02-07] MEDS ORDERED: VERAPAMIL HCL 2.5 MG/ML 2 ML VIAL ONE (08:58)
[2023-02-07] MEDS: PANTOPRAZOLE SOD 40 MG TABEC PO SCH ×2 (09:00→17:04)
[2023-02-07] MEDS ORDERED: ONDANSETRON HCL 4 MG ORAL DISINTEGRATING TAB PO PRN (09:00)
[2023-02-07] MEDS: ENOXAPARIN 30 MG/0.3 ML SYR SC SCH (09:00)
[2023-02-07] MEDS ORDERED: MIDAZOLAM HCL 2 MG/2 ML VIAL ONE (11:10)
[2023-02-07] MEDS ORDERED: FENTANYL CITRATE/PF 100MCG/2 ML INJ ONE (11:11)
[2023-02-07] MEDS ORDERED: ONDANSETRON HCL INJ 2MG/ML 2ML 2 MG/ML VIAL ONE (12:38)
[2023-02-07] MEDS: FUROSEMIDE INJ 10 MG/ML 4 ML VIAL IV SCH (15:48)
[2023-02-07] MEDS: CEFTRIAXONE 2 GM in SODIUM CHLORIDE 0.9% 100 ML IV SCH (15:48)
[2023-02-07] MEDS: GABAPENTIN 100 MG CAP PO SCH ×2 (15:48→17:00)
[2023-02-07] MEDS: DEXAMETHASONE SOD PHOS 10 MG/1 ML VIAL IV SCH (15:49)
[2023-02-07] MEDS: LOSARTAN POTASSIUM 25 MG TAB PO SCH (15:49)
[2023-02-07] MEDS: CLOPIDOGREL BISULFATE 75 MG TAB PO SCH (15:49)
[2023-02-07] MEDS: DONEPEZIL HCL 5 MG TAB PO SCH (20:39)
[2023-02-07] MEDS: QUETIAPINE FUMARATE 25 MG TAB PO SCH (20:39)
[2023-02-07] MEDS: ATORVASTATIN 40 MG TAB PO SCH (20:39)
[2023-02-07] MEDS: FAMOTIDINE 20 MG TAB PO SCH (20:39)
[2023-02-07] MEDS: TRAMADOL HCL 50 MG TAB PO SCH (20:40)
[2023-02-07] MEDS: INSULIN GLARGINE 100 UNITS/ML VIAL SQ SCH (22:57)
[2023-02-08] VITALS (11 sets, daily range): BP systolic 93–174; BP diastolic 47–57; PULSE 63–92; RESP 16–20; TEMP 97.5–98.7; O2SAT 98–100
[2023-02-08 06:04] LABS: BASOPHILS % 0.2 % (0.0-1.0); EOSINOPHILS % 0.2 % (0.0-6.0); HEMATOCRIT 29.1 % (34.2-44.1); HEMOGLOBIN 9.4 g/dL (12.0-16.0); LYMPHOCYTES # (AUTO) 0.6 (1.0-3.2); LYMPHOCYTES % 9.8 % (18.0-39.1); MEAN CORPUSCULAR HEMOGLOBIN 27.1 pg (28-32); MEAN CORPUSCULAR HGB CONC 32.3 g/dL (31-35); MEAN CORPUSCULAR VOLUME 83.9 fL (81-99); MONOCYTES # (AUTO) 0.5 (0.2-0.8); MONOCYTES % 7.4 % (4.4-11.3); NEUTROPHILS # (AUTO) 5.2 (2.1-6.9); NEUTROPHILS % 81.5 % (38.7-80.0); PLATELET COUNT 213 x10e3/uL (140-360); RED BLOOD COUNT 3.47 x10e6/uL (3.6-5.1); RED CELL DISTRIBUTION WIDTH 17.3 % (11.7-14.4); WHITE BLOOD COUNT 6.32 x10e3/uL (4.8-10.8)
[2023-02-08 06:44] LABS: ANION GAP 13.6 mmol/L (8-16); CALCIUM 9.9 mg/dL (8.4-10.2); CREATININE, SERUM 1.59 mg/dL (0.57-1.11); POTASSIUM 4.6 mmol/L (3.5-5.1)
[2023-02-08 07:05] LABS: ALBUMIN 3.6 g/dL (3.5-5.0); ALBUMIN/GLOBULIN RATIO 1.1 (0.8-2.0)
[2023-02-08] MEDS: CLOPIDOGREL BISULFATE 75 MG TAB PO SCH (09:08)
[2023-02-08] MEDS: GABAPENTIN 100 MG CAP PO SCH ×2 (09:08→17:29)
[2023-02-08] MEDS: LOSARTAN POTASSIUM 25 MG TAB PO SCH (09:09)
[2023-02-08] MEDS: PANTOPRAZOLE SOD 40 MG TABEC PO SCH ×2 (09:09→17:29)
[2023-02-08] MEDS: DEXAMETHASONE SOD PHOS 10 MG/1 ML VIAL IV SCH (09:09)
[2023-02-08] MEDS: INSULIN LISPRO 100 UNIT/1 ML 3ML VIAL SQ SCH ×4 (09:22→22:24)
[2023-02-08] MEDS: MECLIZINE HCL 12.5 MG TAB PO SCH ×2 (12:15→17:35)
[2023-02-08] MEDS: MIDODRINE HCL 5 MG TABLET PO SCH ×2 (12:16→17:29)
[2023-02-08] MEDS: DEXAMETHASONE 4 MG TAB PO SCH (17:29)
[2023-02-08] MEDS: CEFTRIAXONE 2 GM in SODIUM CHLORIDE 0.9% 100 ML IV SCH (17:29)
[2023-02-08] MEDS: TRAMADOL HCL 50 MG TAB PO SCH (21:00)
[2023-02-08] MEDS: FAMOTIDINE 20 MG TAB PO SCH (22:19)
[2023-02-08] MEDS: DONEPEZIL HCL 5 MG TAB PO SCH (22:19)
[2023-02-08] MEDS: ATORVASTATIN 40 MG TAB PO SCH (22:19)
[2023-02-08] MEDS: QUETIAPINE FUMARATE 25 MG TAB PO SCH (22:19)
[2023-02-08] MEDS: INSULIN GLARGINE 100 UNITS/ML VIAL SQ SCH (22:25)
[2023-02-09] VITALS (11 sets, daily range): BP systolic 115–177; BP diastolic 56–90; PULSE 60–88; RESP 16–19; TEMP 97.5–98.6; O2SAT 98–100
[2023-02-09] MEDS: MECLIZINE HCL 12.5 MG TAB PO SCH ×5 (00:17→23:59)
[2023-02-09 06:27] LABS: ALBUMIN 3.6 g/dL (3.5-5.0); ALBUMIN/GLOBULIN RATIO 1.2 (0.8-2.0); ANION GAP 12.2 mmol/L (8-16); CALCIUM 10.3 mg/dL (8.4-10.2); CREATININE, SERUM 1.25 mg/dL (0.57-1.11); POTASSIUM 5.2 mmol/L (3.5-5.1)
[2023-02-09] MEDS: LOSARTAN POTASSIUM 25 MG TAB PO SCH (09:00)
[2023-02-09] MEDS: PANTOPRAZOLE SOD 40 MG TABEC PO SCH ×2 (10:08→17:13)
[2023-02-09] MEDS: GABAPENTIN 100 MG CAP PO SCH ×2 (10:08→17:13)
[2023-02-09] MEDS: CLOPIDOGREL BISULFATE 75 MG TAB PO SCH (10:08)
[2023-02-09] MEDS: MIDODRINE HCL 5 MG TABLET PO SCH ×3 (10:08→16:00)
[2023-02-09] MEDS: INSULIN LISPRO 100 UNIT/1 ML 3ML VIAL SQ SCH ×4 (10:13→20:38)
[2023-02-09] MEDS: HYDRALAZINE HCL 20 MG/ML VIAL IV PRN (12:55)
[2023-02-09] MEDS: DEXAMETHASONE 4 MG TAB PO SCH (17:13)
[2023-02-09] MEDS: ATORVASTATIN 40 MG TAB PO SCH (20:34)
[2023-02-09] MEDS: DONEPEZIL HCL 5 MG TAB PO SCH (20:34)
[2023-02-09] MEDS: FAMOTIDINE 20 MG TAB PO SCH (20:34)
[2023-02-09] MEDS: QUETIAPINE FUMARATE 25 MG TAB PO SCH (20:34)
[2023-02-09] MEDS: INSULIN GLARGINE 100 UNITS/ML VIAL SQ SCH (20:37)
[2023-02-09] MEDS: TRAMADOL HCL 50 MG TAB PO SCH (20:40)
[2023-02-10 01:03] VITALS: BP 142/49; PULSE 85; RESP 18; TEMP 97.9; O2SAT 97
[2023-02-10 05:32] VITALS: BP 135/51; PULSE 60; RESP 16; TEMP 97.7; O2SAT 99
[2023-02-10] MEDS: MECLIZINE HCL 12.5 MG TAB PO SCH (06:09)
[2023-02-10 06:57] VITALS: PULSE 70; RESP 19; O2SAT 96
[2023-02-10 07:02] LABS: ALBUMIN 3.5 g/dL (3.5-5.0); ALBUMIN/GLOBULIN RATIO 1.3 (0.8-2.0); ANION GAP 10.9 mmol/L (8-16); CALCIUM 10.1 mg/dL (8.4-10.2); CREATININE, SERUM 1.21 mg/dL (0.57-1.11); POTASSIUM 4.9 mmol/L (3.5-5.1)
[2023-02-10] MEDS: MIDODRINE HCL 5 MG TABLET PO SCH (08:00)
[2023-02-10 08:25] VITALS: BP 169/55; PULSE 68; RESP 16; TEMP 98.1; O2SAT 100
[2023-02-10 08:33] VITALS: BP 169/55; PULSE 68; RESP 16; TEMP 98.1; O2SAT 100
[2023-02-10] MEDS: PANTOPRAZOLE SOD 40 MG TABEC PO SCH (09:55)
[2023-02-10] MEDS: CLOPIDOGREL BISULFATE 75 MG TAB PO SCH (09:55)
[2023-02-10] MEDS: GABAPENTIN 100 MG CAP PO SCH (09:55)
[2023-02-10] MEDS: INSULIN LISPRO 100 UNIT/1 ML 3ML VIAL SQ SCH (09:57)
[2023-02-10] MEDS ORDERED: MEDROL4 M2 (11:29)
[2023-02-10] MEDS ORDERED: MIDODRINE HCL5 MG PO (11:30)
[2023-02-10] MEDS ORDERED: FARXIGA5 MG PO (11:31)
== END 2023-02-10 12:10 | disposition home or self-care (01) | DRG 177 ==
LOC: ER 14:12 → ERHOLD 15:59 → INTOOBSV 15:59 → MED/SURG3 21:21 → OBSVTOIN 02-05 09:51
PROVIDERS: ADMIT Internal Medicine; ATTEND Internal Medicine
PROC: XW033E5 Introduction of Remdesivir Anti-infective into Peripheral Vein, Percutaneous Approach, New Technology Group 5 (ICD-10-PCS; principal; 2023-02-07)
PROC: B2151ZZ Fluoroscopy of Left Heart using Low Osmolar Contrast (ICD-10-PCS; 2023-02-07)
PROC: B2111ZZ Fluoroscopy of Multiple Coronary Arteries using Low Osmolar Contrast (ICD-10-PCS; 2023-02-07)
PROC: B3101ZZ Fluoroscopy of Thoracic Aorta using Low Osmolar Contrast (ICD-10-PCS; 2023-02-07)
PROC: 4A023N7 Measurement of Cardiac Sampling and Pressure, Left Heart, Percutaneous Approach (ICD-10-PCS; 2023-02-07)
DX: U07.1 COVID-19 (principal); I21.4 Non-ST elevation (NSTEMI) myocardial infarction; I50.43 Acute on chronic combined systolic (congestive) and diastolic (congestive) heart failure; J12.82 Pneumonia due to coronavirus disease 2019; J96.21 Acute and chronic respiratory failure with hypoxia; J18.8 Other pneumonia, unspecified organism; N17.9 Acute kidney failure, unspecified; I13.0 Hypertensive heart and chronic kidney disease with heart failure and stage 1 through stage 4 chronic kidney disease, or unspecified chronic kidney disease; Z95.5 Presence of coronary angioplasty implant and graft; Z95.0 Presence of cardiac pacemaker; J44.9 Chronic obstructive pulmonary disease, unspecified; I25.10 Atherosclerotic heart disease of native coronary artery without angina pectoris; K21.9 Gastro-esophageal reflux disease without esophagitis; E78.5 Hyperlipidemia, unspecified; M54.9 Dorsalgia, unspecified; G89.29 Other chronic pain; E11.42 Type 2 diabetes mellitus with diabetic polyneuropathy; I11.0 Hypertensive heart disease with heart failure; E11.51 Type 2 diabetes mellitus with diabetic peripheral angiopathy without gangrene; M19.91 Primary osteoarthritis, unspecified site; I95.1 Orthostatic hypotension; N18.9 Chronic kidney disease, unspecified; E11.22 Type 2 diabetes mellitus with diabetic chronic kidney disease; D63.1 Anemia in chronic kidney disease; E86.0 Dehydration; Z90.49 Acquired absence of other specified parts of digestive tract; Z98.1 Arthrodesis status; Z87.891 Personal history of nicotine dependence; Z79.02 Long term (current) use of antithrombotics/antiplatelets; Z99.81 Dependence on supplemental oxygen; Z79.4 Long term (current) use of insulin
CPT/HCPCS: 36415; 71045; 71260; 75625; 80048; 80053; 80061; 81001; 82550; 82607; 82746; 82948; 83036; 83540; 83735; 83880; 84100; 84443; 84466; 84484; 85025; 93005; 93306; 93454; 94799; 96372; 99152; 99153; 99284; C1769; C1887; G0378; J0248; J0696; J1100; J1644; J1650; J1940; J2001; J2250; J2405; J7030; J7050; Q9967; U0002